=== PATIENT | female | born 1950 | race Caucasian/White ===

== ENCOUNTER → 2016-11-07 10:43 | Outpatient (CLI) | payer MEDICARE, OTHER ==
[~2016-11-07 10:43] MED LIST: AMPYRA10 MG PO; AUBAGIO14 MG PO; BACLOFEN10 MG PO; NEURONTIN600 MG PO; PROVIGIL200 MG PO; ROBAXIN-750750 MG PO; TRIAMTERENE-HCT1 TA1 PO; ULTRAM50 MG PO
[2016-11-07 11:47] LABS: HEMATOCRIT 39.6 % (36.0-48.0); MCH 30.8 pg (26.0-34.0); MCHC 32.8 g/dL (31.0-37.0); MCV 93.8 fL (80.0-100.0); PLATELET COUNT 178 10x3/uL (130-400); RBC 4.22 10x6/uL (4.00-5.40); RDW 12.8 % (11.5-14.5); WBC 2.7 10x3/uL (4.8-10.8)
[2016-11-07 12:07] LABS: EOSINOPHILS 2 % (0-7); LYMPHOCYTES 32 % (15-50); MONOCYTES 7 % (2-11); NEUTROPHILS 58 % (40-80)
[2016-11-07 12:08] LABS: PLATELET ESTIMATE NORMAL
[2016-11-07 12:15] LABS: ALBUMIN 3.9 g/dL (3.4-5.0); ANION GAP 11.5 mmol/L (8-16); BILIRUBIN - TOTAL 0.48 mg/dL (0.2-1.3); CALCIUM 10.5 mg/dL (8.5-10.1); CARBON DIOXIDE 30.8 mmol/L (21.0-32.0); CHOL - HDL RATIO 4.1 ratio (2.3-4.1); CREATININE - SERUM 1.1 mg/dL (0.6-1.3); LDL-HDL RATIO 2.7 ratio (1.5-3.5); POTASSIUM - SERUM 4.3 mmol/L (3.5-5.1); PROTEIN - SERUM 6.9 g/dL (6.4-8.2); THYROID STIMULATING HORMONE 1.27 uIU/mL (0.36-3.74)
== END | disposition home or self-care (01) ==
LOC: D.MRI 10:43
PROVIDERS: Psychiatry & Neurology Neurology
DX: G35 Multiple sclerosis (principal)

== ENCOUNTER 2016-11-26 09:44 | Outpatient (CLI) | payer MEDICARE, OTHER ==
[~2016-11-26] VITALS: Ht 167.6 cm; Wt 82.7 kg
[2016-11-26 10:43] LABS: ANION GAP 11.5 mmol/L (8-16); CALCIUM 10.2 mg/dL (8.5-10.1); CARBON DIOXIDE 31.6 mmol/L (21.0-32.0); POTASSIUM - SERUM 4.1 mmol/L (3.5-5.1)
[2016-11-26 10:59] VITALS: BP 117/71; Ht 167.6 cm; Wt 82.7 kg
[2016-11-26] MEDS ORDERED: AUBAGIO14 MG PO (11:06)
[2016-11-26] MEDS ORDERED: TRIAMTERENE-HCT1 TA1 PO (11:07)
[2016-11-26] MEDS ORDERED: AMPYRA10 MG PO (11:08)
[2016-11-26] MEDS ORDERED: BACLOFEN10 MG PO (11:08)
[2016-11-26] MEDS ORDERED: NEURONTIN600 MG PO (11:09)
[2016-11-26] MEDS ORDERED: PROVIGIL200 MG PO (11:09)
[2016-11-26] MEDS ORDERED: ROBAXIN-750750 MG PO (11:10)
--- NOTE | 2016-11-26 11:13 | NUR ---
1113 ASSESSMENT DONE IV SOLUMEDROL INFUSING VIA RT ARM 20 GAUGE NO REDNESS OR SWELLING SOLUMEDROL AT 86 CC/HR.
--- NOTE | 2016-11-26 11:14 | NUR ---
1114 LUNCH SERVED AND C/L IN REACH.
--- NOTE | 2016-11-26 12:23 | NUR ---
1200 SLIGHT LEAKING AT [place] IV HOOKED DIRECTLY TO CATHETER NO LEAKING OR REDNESS. SOLUMEDROL INFUSING WITHOUT PROBLEMS.
--- NOTE | 2016-11-26 15:11 | NUR ---
1215 NO LEAKING AT IV SITE.
--- NOTE | 2016-11-26 15:12 | NUR ---
1343 SOLUMEDROL COMPLETE. RECONNECTED SALINE LOCK TO IV AND SITE CARE GIVEN. 1415 HOME WITH SALINE LOCK AND DISCHARGE INSTRUCTIONS GIVEN.
--- NOTE | 2016-11-26 15:12 | NUR ---
1315 TOLERATED LUNCH NO NEEDS VOICED.
== END 2016-11-26 14:30 | disposition home or self-care (01) ==
LOC: D.OPS 09:44
PROVIDERS: Family Medicine
DX: G35 Multiple sclerosis (principal)

== ENCOUNTER 2016-11-27 06:30 | Outpatient (CLI) | payer MEDICARE, OTHER ==
[~2016-11-27] VITALS: Ht 167.6 cm; Wt 82.7 kg
[~2016-11-27 06:30] MED LIST changes: -ULTRAM50 MG PO
[2016-11-27 10:52] VITALS: BP 125/76; Ht 167.6 cm; Wt 82.7 kg
[2016-11-27 11:09] LABS: ANION GAP 12.3 mmol/L (8-16); CALCIUM 10.1 mg/dL (8.5-10.1); CARBON DIOXIDE 29.8 mmol/L (21.0-32.0); POTASSIUM - SERUM 4.1 mmol/L (3.5-5.1)
--- NOTE | 2016-11-27 11:22 | NUR ---
SITTING UP IN CHAIR. EATING LUNCH. GLUCOSE IS 101, PATIENT INFORMED. IV INFUSING WITHOUT DIFFICULTY.
--- NOTE | 2016-11-27 13:00 | NUR ---
DENIES NEEDS. NO C/O VOICED.
--- NOTE | 2016-11-27 14:05 | NUR ---
WANTS TO LEAVE SALINE LOCK IN FOR TOMORROW'S DOSE, FLUSHED WITH NS. DISCHARGE INSTRUCTIONS GIVEN, DISCHARGED HOME VIA WC.
== END 2016-11-27 14:05 | disposition home or self-care (01) ==
LOC: D.OPS 06:30
PROVIDERS: Family Medicine
DX: G35 Multiple sclerosis (principal)

== ENCOUNTER → 2016-11-28 06:27 | Outpatient (CLI) | payer MEDICARE, OTHER ==
[~2016-11-28 06:27] MED LIST changes: +ULTRAM50 MG PO
[2016-11-28 10:26] LABS: ANION GAP 11.4 mmol/L (8-16); CARBON DIOXIDE 29.5 mmol/L (21.0-32.0); CREATININE - SERUM 1.1 mg/dL (0.6-1.3); POTASSIUM - SERUM 3.9 mmol/L (3.5-5.1)
[2016-11-28 10:29] VITALS: BP 136/75; Ht 167.6 cm
--- NOTE | 2016-11-28 10:33 | NUR ---
1015 IV SOLUMEDROL DRIP STARTED PER PUMP TO LEFT FOREARM IV WITHOUT PROBLEMS NOTED TO THE SITE. PER PUMP AT 86 PER HR.
== END | disposition home or self-care (01) ==
LOC: D.OPS 06:27
PROVIDERS: Family Medicine
DX: G35 Multiple sclerosis (principal)

== ENCOUNTER 2016-12-18 08:56 | Outpatient (CLI) | payer MEDICARE, OTHER ==
[~2016-12-18] VITALS: Ht 167.6 cm; Wt 82.7 kg
[~2016-12-18 08:56] MED LIST changes: -ULTRAM50 MG PO
[2016-12-18] MEDS ORDERED: ULTRAM50 MG PO (10:12)
[2016-12-18 10:19] VITALS: BP 117/69; Ht 167.6 cm; Wt 82.7 kg
[2016-12-18 11:44] LABS: ANION GAP 9.9 mmol/L (8-16); CALCIUM 9.9 mg/dL (8.5-10.1); CARBON DIOXIDE 33.4 mmol/L (21.0-32.0); POTASSIUM - SERUM 4.3 mmol/L (3.5-5.1)
== END 2016-12-18 13:18 | disposition home or self-care (01) ==
LOC: D.OPS 08:56
PROVIDERS: Family Medicine
DX: G35 Multiple sclerosis (principal)

== ENCOUNTER 2017-01-01 09:11 | Outpatient (CLI) | payer MEDICARE, OTHER ==
[~2017-01-01 09:11] MED LIST changes: +ULTRAM50 MG PO
[2017-01-01 10:28] LABS: ANION GAP 8.2 mmol/L (8-16); CALCIUM 9.8 mg/dL (8.5-10.1); CREATININE - SERUM 0.9 mg/dL (0.6-1.3); POTASSIUM - SERUM 4.2 mmol/L (3.5-5.1)
[2017-01-01 11:57] VITALS: BP 121/77; Ht 167.6 cm
--- NOTE | 2017-01-01 11:59 | NUR ---
0955-PERIPHERAL IV TO LEFT INNER FOREARM STARTED TIMES ONE ATTEMPT WITH 22G CATHETER, SOLUMEDROL INFUSION INITIATED VIA PUMP OVER 3 HRS. 1200-PERIPHERAL IV SITE WITHOUT SIGNS OF INFILTRATION NOTED, REGULAR LUNCH TRAY OFFERED.
--- NOTE | 2017-01-01 14:42 | NUR ---
1355-INFUSION COMPLETE, IV DISCONTINUED, IV CATHETER INTACT. COTTON BALL AND BANDAID APPLIED. 1430-PT. ESCORTED VIA WHEELCHAIR TO PERSONAL CAR. PT. LEFT ON OWN ACCORD.
== END 2017-01-01 14:30 ==
LOC: D.OPS 09:11
PROVIDERS: Family Medicine
DX: G35 Multiple sclerosis (principal)

== ENCOUNTER 2017-01-15 08:53 | Outpatient (CLI) | payer MEDICARE, OTHER ==
[2017-01-15 09:49] LABS: ANION GAP 9.2 mmol/L (8-16); CALCIUM 9.9 mg/dL (8.5-10.1); CARBON DIOXIDE 31.6 mmol/L (21.0-32.0); CREATININE - SERUM 0.9 mg/dL (0.6-1.3); POTASSIUM - SERUM 3.8 mmol/L (3.5-5.1)
[2017-01-15 10:08] VITALS: BP 135/71
--- NOTE | 2017-01-15 10:12 | NUR ---
0940-IV TO LEFT FORARM STARTED TIMES ONE ATTEMPT WITH 22G CATHETER, SOLUMEDROL INFUSION INITATED VIA PUMP OVER 3 HR.
== END 2017-01-15 12:58 | disposition home or self-care (01) ==
LOC: D.OPS 08:53
PROVIDERS: Family Medicine
DX: G35 Multiple sclerosis (principal)

== ENCOUNTER 2017-01-28 10:35 | Outpatient (CLI) | payer MEDICARE, OTHER ==
--- NOTE | 2017-01-28 11:47 | NUR ---
PT REQUESTING A HEMOGRAM BE OBTAINED, DR PARMAR CALLED AND NEW ORDER RECEIVED FOR A HEMOGRAM LAB ORDERS
[2017-01-28 11:53] LABS: ANION GAP 12.9 mmol/L (8-16); CALCIUM 10.2 mg/dL (8.5-10.1); CARBON DIOXIDE 29.3 mmol/L (21.0-32.0); POTASSIUM - SERUM 4.2 mmol/L (3.5-5.1)
[2017-01-28 11:55] LABS: HEMATOCRIT 38.9 % (36.0-48.0); HEMOGLOBIN 12.8 g/dL (12-16); MCH 30.8 pg (26.0-34.0); MCHC 32.9 g/dL (31.0-37.0); MCV 93.7 fL (80.0-100.0); MEAN PLATELET VOLUME 10.4 fL (7.4-10.4); RBC 4.15 10x6/uL (4.00-5.40); WBC 4.8 10x3/uL (4.8-10.8)
[2017-01-28 12:18] VITALS: BP 126/65; Ht 167.6 cm
--- NOTE | 2017-01-28 12:22 | NUR ---
22 GAUGE IV STARTED IN LEFT ARM. 1155-SOLUMEDROL INFUSION STRTED VIA MED PUMP WITHOUT ANY DIFFICULTIES. 1215-REG TRAY GIVEN REQUESTED, CALL LIGHT IN REACH PT DENIES ANY NEEDS OR CONCERNS AT THIS TIME
--- NOTE | 2017-01-28 15:12 | NUR ---
1500 INFUSION HAS COMPLETED. IV DC'D WITH CATH INTACT. PT UP TO BR, VOIDS.
== END 2017-01-28 15:25 | disposition home or self-care (01) ==
LOC: D.OPS 10:35
PROVIDERS: Family Medicine
DX: G35 Multiple sclerosis (principal)

== ENCOUNTER 2017-02-12 08:16 | Outpatient (CLI) | payer MEDICARE, OTHER ==
[2017-02-12] MEDS ORDERED: ZANAFLEX2 M1 PO (10:25)
[2017-02-12 10:35] VITALS: BP 136/82; Ht 167.6 cm
--- NOTE | 2017-02-12 10:38 | NUR ---
1000-START PERIPHERAL IV TO RIGHT WRIST WITH 22G CATHETER, PLACED INFUSION ON PUMP OVER 3 HRS.
[2017-02-12 12:36] LABS: ANION GAP 8.7 mmol/L (8-16); CALCIUM 10.3 mg/dL (8.5-10.1); CARBON DIOXIDE 33.2 mmol/L (21.0-32.0); CREATININE - SERUM 0.9 mg/dL (0.6-1.3); POTASSIUM - SERUM 3.9 mmol/L (3.5-5.1)
--- NOTE | 2017-02-12 13:30 | NUR ---
IV IS OUT INTACT. DISCHARGE INSTRUCTIONS GIVEN, VOICED UNDERSTANDING. DISCHARGED HOME VIA WC.
== END 2017-02-12 13:30 | disposition home or self-care (01) ==
LOC: D.OPS 08:16
PROVIDERS: Family Medicine
DX: G35 Multiple sclerosis (principal)

== ENCOUNTER → 2018-09-22 09:11 | Outpatient (CLI) | payer MEDICARE, OTHER ==
[~2018-09-22 09:11] MED LIST changes: +ZANAFLEX2 M1 PO
[2018-09-22 10:03] LABS: BASOPHILS 0.6 % (0-2); EOSINOPHILS 1.6 % (0-7); HEMATOCRIT 37.6 % (36.0-48.0); HEMOGLOBIN 12.5 g/dL (12-16); LYMPHOCYTES 18.8 % (15-50); MCH 32.2 pg (26.0-34.0); MCHC 33.2 g/dL (31.0-37.0); MCV 96.9 fL (80.0-100.0); MONOCYTES 12.6 % (2-11); NEUTROPHILS 66.4 % (40-80); RBC 3.88 10x6/uL (4.00-5.40); RDW 12.9 % (11.5-14.5); WBC 3.1 10x3/uL (4.8-10.8)
[2018-09-22 10:06] LABS: PLATELET COUNT 134 10x3/uL (130-400)
[2018-09-22 10:08] LABS: ALBUMIN 3.5 g/dL (3.4-5.0); ALKALINE PHOSPHATASE 116 U/L (46-116); ALT (SGPT) 5 U/L (10-68); BILIRUBIN - DIRECT 0.12 mg/dL (0.00-0.30); BILIRUBIN - TOTAL 0.42 mg/dL (0.2-1.3); CALC OSMOLALITY 281 mosm/kg (275-300); CALCIUM 9.7 mg/dL (8.5-10.1); CARBON DIOXIDE 29.1 mmol/L (21.0-32.0); CHLORIDE - SERUM 102 mmol/L (98-107); CREATININE - SERUM 0.7 mg/dL (0.6-1.3); GLUCOSE 86 mg/dL (74-106); POTASSIUM - SERUM 4.1 mmol/L (3.5-5.1); PROTEIN - SERUM 6.8 g/dL (6.4-8.2); SODIUM 140 mmol/L (136-145); THYROID STIMULATING HORMONE 1.62 uIU/mL (0.36-3.74); UREA NITROGEN 24 mg/dL (7-18); eGFR NON AFRICAN AMERICAN 88 mL/min (90-120)
== END | disposition home or self-care (01) ==
LOC: D.LAB 09:11
PROVIDERS: Family Medicine
DX: G35 Multiple sclerosis (principal); M19.90 Unspecified osteoarthritis, unspecified site; G60.9 Hereditary and idiopathic neuropathy, unspecified; E78.5 Hyperlipidemia, unspecified

== ENCOUNTER → 2019-03-18 09:54 | Outpatient (CLI) | payer MEDICARE, OTHER ==
[~2019-03-18 09:54] MED LIST changes: +LASIX40 MG PO; +POTASSIUM CHLO10 ME1 PO; +VIBRAMYCIN 100100 MG PO
[2019-03-18 10:45] LABS: ALBUMIN 3.5 g/dL (3.4-5.0); ALKALINE PHOSPHATASE 153 U/L (46-116); ALT (SGPT) 31 U/L (10-68); BILIRUBIN - TOTAL 0.28 mg/dL (0.2-1.3); CALC OSMOLALITY 274 mosm/kg (275-300); CALCIUM 10.2 mg/dL (8.5-10.1); CARBON DIOXIDE 33.4 mmol/L (21.0-32.0); CHLORIDE - SERUM 96 mmol/L (98-107); CREATININE - SERUM 0.8 mg/dL (0.6-1.3); GLUCOSE 116 mg/dL (74-106); PROTEIN - SERUM 6.8 g/dL (6.4-8.2); SODIUM 135 mmol/L (136-145); UREA NITROGEN 23 mg/dL (7-18); eGFR NON AFRICAN AMERICAN 75 mL/min (90-120)
== END | disposition home or self-care (01) ==
LOC: D.LAB 09:54
PROVIDERS: ATTEND Family Medicine
DX: R60.9 Edema, unspecified (principal); G35 Multiple sclerosis

== ENCOUNTER → 2019-06-16 11:53 | Outpatient (CLI) | payer MEDICARE, OTHER ==
[2019-06-16 12:39] LABS: BASOPHILS 0.4 % (0-2); EOSINOPHILS 3.1 % (0-7); HEMATOCRIT 37.7 % (36.0-48.0); HEMOGLOBIN 12.9 g/dL (12-16); IMMATURE GRANULOCYTES 0.2 % (0-5); LYMPHOCYTES 18.4 % (15-50); MCH 32.2 pg (26.0-34.0); MCHC 34.2 g/dL (31.0-37.0); MEAN PLATELET VOLUME 9.4 fL (7.4-10.4); MONOCYTES 8.3 % (2-11); NEUTROPHILS 69.6 % (40-80); PLATELET COUNT 153 10x3/uL (130-400); RBC 4.01 10x6/uL (4.00-5.40); RDW 13.4 % (11.5-14.5); WBC 4.6 10x3/uL (4.8-10.8)
[2019-06-16 13:11] LABS: APPEARANCE CLEAR (CLEAR); BILIRUBIN NEGATIVE (NEGATIVE); COLOR YELLOW (YELLOW); GLUCOSE NEGATIVE (NEGATIVE); KETONE NEGATIVE (NEGATIVE); NITRITE NEGATIVE (NEGATIVE); PROTEIN NEGATIVE (NEGATIVE); UROBILINOGEN NORMAL (NORMAL)
[2019-06-16 13:33] LABS: ALBUMIN 3.7 g/dL (3.4-5.0); BILIRUBIN - TOTAL 0.43 mg/dL (0.2-1.3); CALCIUM 10.4 mg/dL (8.5-10.1); CARBON DIOXIDE 36.7 mmol/L (21.0-32.0); CREATININE - SERUM 1.1 mg/dL (0.6-1.3); MAGNESIUM - SERUM 2.1 mg/dL (1.8-2.4); PROTEIN - SERUM 6.9 g/dL (6.4-8.2)
[2019-06-16 13:57] LABS: ANION GAP 10.9 mmol/L (8-16); POTASSIUM - SERUM 2.6 mmol/L (3.5-5.1)
== END | disposition home or self-care (01) ==
LOC: D.LAB 11:53
PROVIDERS: ATTEND Family Medicine
DX: G35 Multiple sclerosis (principal); R53.1 Weakness; R42 Dizziness and giddiness

== ENCOUNTER → 2019-06-21 11:18 | Outpatient (CLI) | payer MEDICARE, OTHER ==
[~2019-06-21 11:18] MED LIST changes: -LASIX40 MG PO; -POTASSIUM CHLO10 ME1 PO; -VIBRAMYCIN 100100 MG PO
== END | disposition home or self-care (01) ==
LOC: D.LAB 11:18
PROVIDERS: ATTEND Family Medicine
DX: E87.6 Hypokalemia (principal)

== ENCOUNTER → 2019-07-01 13:46 | Outpatient (CLI) | payer MEDICARE, OTHER ==
[~2019-07-01 13:46] MED LIST changes: +LASIX40 MG PO; +POTASSIUM CHLO10 ME1 PO; +VIBRAMYCIN 100100 MG PO
== END | disposition home or self-care (01) ==
LOC: D.LAB 13:46
PROVIDERS: ATTEND Family Medicine
DX: E87.6 Hypokalemia (principal)

== ENCOUNTER → 2019-07-07 18:19 | Outpatient (CLI) | payer MEDICARE, OTHER ==
[2019-07-07 18:39] LABS: BASOPHILS 0.2 % (0-2); EOSINOPHILS 1.5 % (0-7); HEMATOCRIT 38.2 % (36.0-48.0); HEMOGLOBIN 12.1 g/dL (12-16); IMMATURE GRANULOCYTES 0.2 % (0-5); LYMPHOCYTES 9.6 % (15-50); MCH 31.9 pg (26.0-34.0); MCHC 31.7 g/dL (31.0-37.0); MCV 100.8 fL (80.0-100.0); MEAN PLATELET VOLUME 9.8 fL (7.4-10.4); MONOCYTES 8.6 % (2-11); NEUTROPHILS 79.9 % (40-80); RBC 3.79 10x6/uL (4.00-5.40); RDW 14.2 % (11.5-14.5); WBC 6.6 10x3/uL (4.8-10.8)
[2019-07-07 19:01] LABS: PLATELET COUNT 117 10x3/uL (130-400)
[2019-07-07 19:04] LABS: ALBUMIN 3.3 g/dL (3.4-5.0); ANION GAP 11.8 mmol/L (8-16); BILIRUBIN - TOTAL 0.45 mg/dL (0.2-1.3); CALCIUM 9.5 mg/dL (8.5-10.1); CARBON DIOXIDE 30.3 mmol/L (21.0-32.0); CREATININE - SERUM 1.1 mg/dL (0.6-1.3); POTASSIUM - SERUM 4.1 mmol/L (3.5-5.1); PROTEIN - SERUM 6.4 g/dL (6.4-8.2)
== END | disposition home or self-care (01) ==
LOC: D.LABREF 18:19
PROVIDERS: ATTEND Family Medicine
DX: L03.90 Cellulitis, unspecified (principal); G35 Multiple sclerosis; R50.9 Fever, unspecified; R60.9 Edema, unspecified

== ENCOUNTER 2019-07-09 11:21 | Emergency (ER) | payer MEDICARE, OTHER ==
[~2019-07-09] VITALS: Ht 167.6 cm; Wt 92.7 kg
[~2019-07-09 11:21] MED LIST changes: -LASIX40 MG PO; -POTASSIUM CHLO10 ME1 PO; -VIBRAMYCIN 100100 MG PO
[2019-07-09 11:28] VITALS: Ht 167.6 cm; Wt 92.7 kg
[2019-07-09] MEDS ORDERED: LASIX40 MG PO (11:31)
[2019-07-09] MEDS ORDERED: POTASSIUM CHLO10 ME1 PO (11:32)
[2019-07-09 11:48] LABS: BASOPHILS 0 % (0-2); EOSINOPHILS 2.1 % (0-7); HEMOGLOBIN 12.1 g/dL (12-16); LYMPHOCYTES 14.9 % (15-50); MCH 31.8 pg (26.0-34.0); MCHC 31.8 g/dL (31.0-37.0); MONOCYTES 10.7 % (2-11); NEUTROPHILS 72.3 % (40-80); PLATELET COUNT 116 10x3/uL (130-400); RDW 14.3 % (11.5-14.5); WBC 4.2 10x3/uL (4.8-10.8)
[2019-07-09 12:03] LABS: ALBUMIN 3.4 g/dL (3.4-5.0); ANION GAP 11.2 mmol/L (8-16); BILIRUBIN - TOTAL 0.51 mg/dL (0.2-1.3); CALCIUM 10.4 mg/dL (8.5-10.1); CARBON DIOXIDE 32.4 mmol/L (21.0-32.0); CREATININE - SERUM 0.9 mg/dL (0.6-1.3); POTASSIUM - SERUM 3.6 mmol/L (3.5-5.1); PROTEIN - SERUM 6.6 g/dL (6.4-8.2)
[2019-07-09] MEDS ORDERED: VIBRAMYCIN 100100 MG PO (12:32)
[2019-07-09 12:45] VITALS: BP 139/78
== END 2019-07-09 12:46 | disposition home or self-care (01) ==
LOC: D.ER 11:21
PROVIDERS: Emergency Medicine
DX: L03.115 Cellulitis of right lower limb (principal); G35 Multiple sclerosis

== ENCOUNTER → 2019-08-02 12:43 | Outpatient (CLI) | payer MEDICARE, OTHER ==
[2019-07-09 11:28] VITALS: BMI 33.0
[~2019-08-02 12:43] MED LIST changes: +LASIX40 MG PO; +POTASSIUM CHLO10 ME1 PO; +VIBRAMYCIN 100100 MG PO
== END | disposition home or self-care (01) ==
LOC: D.RAD 12:43
PROVIDERS: ATTEND Family Medicine
DX: M54.2 Cervicalgia (principal)

== ENCOUNTER → 2019-10-26 12:06 | Outpatient (CLI) | payer MEDICARE, OTHER ==
[2019-07-09 11:28] VITALS: BMI 33.0
[2019-10-26 13:34] LABS: CALCIUM 9.4 mg/dL (8.5-10.1); CREATININE - SERUM 1.2 mg/dL (0.6-1.3); MAGNESIUM - SERUM 2.5 mg/dL (1.8-2.4)
== END | disposition home or self-care (01) ==
LOC: D.LAB 12:06
PROVIDERS: ATTEND Family Medicine
DX: L03.90 Cellulitis, unspecified (principal); E87.6 Hypokalemia; M47.817 Spondylosis without myelopathy or radiculopathy, lumbosacral region; I82.409 Acute embolism and thrombosis of unspecified deep veins of unspecified lower extremity

== ENCOUNTER → 2021-02-03 08:39 | Outpatient (CLI) | payer MEDICARE, OTHER ==
[2019-07-09 11:28] VITALS: BMI 33.0
[2021-02-03 09:19] LABS: BASOPHILS 0.4 % (0-2); EOSINOPHILS 1.8 % (0-7); HEMATOCRIT 43.5 % (36.0-48.0); HEMOGLOBIN 14.2 g/dL (12-16); IMMATURE GRANULOCYTES 0.2 % (0-5); LYMPHOCYTE ABS# 0.96 10x3/uL (1.18-3.74); LYMPHOCYTES 21.3 % (15-50); MCH 32.1 pg (26.0-34.0); MCHC 32.6 g/dL (31.0-37.0); MCV 98.4 fL (80.0-100.0); MEAN PLATELET VOLUME 10.6 fL (7.4-10.4); MONOCYTES 9.8 % (2-11); NEUTROPHIL ABS# 2.99 10x3/uL (1.56-6.13); NEUTROPHILS 66.5 % (40-80); RBC 4.42 10x6/uL (4.00-5.40); RDW 13.2 % (11.5-14.5); WBC 4.5 10x3/uL (4.8-10.8)
[2021-02-03 09:23] LABS: PLATELET COUNT 165 10x3/uL (130-400)
[2021-02-03 10:03] LABS: ALBUMIN 3.8 g/dL (3.4-5.0); ANION GAP 12.9 mmol/L (8-16); BILIRUBIN - TOTAL 0.34 mg/dL (0.2-1.3); CALCIUM 10.9 mg/dL (8.5-10.1); CARBON DIOXIDE 30.4 mmol/L (21.0-32.0); CHOL - HDL RATIO 4.6 ratio (2.3-4.1); CREATININE - SERUM 1.4 mg/dL (0.6-1.3); LDL-HDL RATIO 2.6 ratio (1.5-3.5); MAGNESIUM - SERUM 2.3 mg/dL (1.8-2.4); POTASSIUM - SERUM 4.3 mmol/L (3.5-5.1); PROTEIN - SERUM 7.3 g/dL (6.4-8.2); THYROID STIMULATING HORMONE 1.48 uIU/mL (0.36-3.74)
== END | disposition home or self-care (01) ==
LOC: D.LABREF 08:39
PROVIDERS: ATTEND Family Medicine
DX: Z00.00 Encounter for general adult medical examination without abnormal findings (principal); M75.112 Incomplete rotator cuff tear or rupture of left shoulder, not specified as traumatic; E55.9 Vitamin D deficiency, unspecified; G35 Multiple sclerosis; E78.49 Other hyperlipidemia